=== PATIENT | female | born 1945 | race Caucasian/White ===

== ENCOUNTER 2018-06-20 09:16 | Emergency (ER) | payer OTHER ==
[~2018-06-20] VITALS: Ht 157.5 cm; Wt 70.3 kg
[~2018-06-20 09:16] MED LIST: HYZAAR 50-12.1 UDTAB PO; IMURAN50 MG PO; LIPITOR20 MG PO; PEPCID40 MG PO; SINGULAIR10 MG PO; SYNTHROID50 MCG PO; ZOFRAN4 MG PO
[2018-06-20] MEDS ORDERED: SINGULAIR4 M1 (09:49)
[2018-06-20] MEDS ORDERED: NORVASC2.5 M1 (09:49)
[2018-06-20] MEDS ORDERED: LIPOFEN150 MG (09:49)
== END 2018-06-20 13:14 | disposition home or self-care (01) ==
LOC: ER 09:16
DX: R42 Dizziness and giddiness (principal)

== ENCOUNTER 2018-06-29 07:12 | Outpatient (CLI) | payer OTHER ==
[~2018-06-29 07:12] MED LIST changes: +LIPOFEN150 MG; +NORVASC2.5 M1; +SINGULAIR4 M1
== END 2018-06-29 07:22 | disposition home or self-care (01) ==
LOC: TOM 07:12
DX: K56.600 Partial intestinal obstruction, unspecified as to cause (principal); K56.50 Intestinal adhesions [bands], unspecified as to partial versus complete obstruction; R19.5 Other fecal abnormalities; K63.5 Polyp of colon

== ENCOUNTER 2018-09-21 08:08 | Inpatient (IN) | payer OTHER ==
[~2018-09-21] VITALS: Ht 157.5 cm; Wt 168.0 kg
[2018-09-23] MEDS ORDERED: OXYC1TAB9 PO (10:14)
[2018-09-23] MEDS ORDERED: POLY119PG PO (10:15)
[2018-09-23] MEDS ORDERED: Intestinex CAP PO (10:15)
[2018-09-23] MEDS ORDERED: LEVAQUIN750 MG PO (10:16)
== END 2018-09-23 13:28 | disposition home or self-care (01) | DRG 329 ==
LOC: AMB-ENDOS 08:08 → SURG 18:02
PROVIDERS: ADMIT Colon & Rectal Surgery
PROC: 0DTN4ZZ Resection of Sigmoid Colon, Percutaneous Endoscopic Approach (ICD-10-PCS; 2018-09-21)
PROC: 0DJD8ZZ Inspection of Lower Intestinal Tract, Via Natural or Artificial Opening Endoscopic (ICD-10-PCS; principal; 2018-09-21 12:00)
DX: K56.690 Other partial intestinal obstruction (principal); K63.1 Perforation of intestine (nontraumatic)

== ENCOUNTER → 2019-11-21 | Outpatient (CLI) | payer OTHER ==
[~2019-11-21] MED LIST changes: +Intestinex CAP PO; +LEVAQUIN750 MG PO; +OXYC1TAB9 PO; +POLY119PG PO
== END | disposition home or self-care (01) ==
LOC: LAB 07:31
PROVIDERS: ATTEND Colon & Rectal Surgery
DX: D12.5 Benign neoplasm of sigmoid colon (principal); K57.32 Diverticulitis of large intestine without perforation or abscess without bleeding; K92.1 Melena

== ENCOUNTER 2019-11-22 05:50 | Day surgery (SDC) | payer OTHER | END 2019-11-22 13:45 | disposition home or self-care (01) | LOC: AMB-ENDOS 05:50 → ADM 13:45 | PROVIDERS: ATTEND Colon & Rectal Surgery | DX: K62.89 Other specified diseases of anus and rectum (principal); K64.1 Second degree hemorrhoids ==

== ENCOUNTER 2020-09-07 07:39 | Outpatient (CLI) | payer OTHER | END 2020-09-07 07:55 | disposition home or self-care (01) | LOC: SONOGRAMA 07:39 | PROVIDERS: ATTEND Pathology Anatomic Pathology | DX: D34 Benign neoplasm of thyroid gland (principal); E04.2 Nontoxic multinodular goiter ==

== ENCOUNTER 2023-01-10 08:33 | Emergency (ER) | payer OTHER ==
[~2023-01-10] VITALS: Ht 157.5 cm; Wt 73.5 kg
[2023-01-10] MEDS ORDERED: FARXIGA5 MG PO (08:48)
[2023-01-10] MEDS ORDERED: IRBESARTAN300 MG PO (08:48)
[2023-01-10] MEDS ORDERED: ZYLOPRIM100 M1 PO (08:49)
[2023-01-10] MEDS ORDERED: CARDURA1 MG PO (08:49)
[2023-01-10] MEDS ORDERED: PREDNISONE10 M2 PO (11:05)
[2023-01-10] MEDS ORDERED: ZITHROMAX200 MG PO (11:05)
== END 2023-01-10 11:28 | disposition home or self-care (01) ==
LOC: ER 08:33
PROVIDERS: General Practice
DX: J06.9 Acute upper respiratory infection, unspecified (principal); R06.02 Shortness of breath; R05.9 Cough, unspecified; R53.81 Other malaise; Z20.822 Contact with and (suspected) exposure to COVID-19; E03.8 Other specified hypothyroidism; E11.9 Type 2 diabetes mellitus without complications; I10 Essential (primary) hypertension
CPT/HCPCS: 36415; 71046; 94640; 96365; 99283; J2930